=== PATIENT | male | born 1960 ===

== ENCOUNTER 2023-07-24 10:38 | Inpatient (IN) | payer MEDICARE ==
[~2023-07-24] VITALS: Ht 182.9 cm; Wt 95.7 kg
[~2023-07-24 10:38] MED LIST: ASPIRIN E.C. 8181 MG PO; ATARAX 25MG25 MG/TAB PO; FLEXERIL 1010 MG/TAB PO; GLUCOPHAGE XR500 M1 PO; GLUCOTROL XL10 MG PO; LIPITOR20 MG PO; LYRICA 75MG CAP75 MG PO; MOBIC 7.5MG7.5 MG PO; NEURONTIN300 MG/CAP PO; SINGULAIR 110 MG/TAB PO; ZESTORETIC 25 M1 TAB PO
[2023-08-13] VITALS (13 sets, daily range): BP systolic 123–160; BP diastolic 70–87; PULSE 71–98; TEMP 97.8–97.9
[2023-08-13 10:48] LABS: BASO % 0.5 % (0.0-2.0); EOS # 0.1 K/mm3 (0.0-0.7); EOS % 0.7 % (0.0-4.0); GRAN % 70.2 % (42.2-75.2); HEMATOCRIT 42.6 % (42.0-52.0); HEMOGLOBIN 14.2 g/dl (13.5-18.0); LYMPH # 1.5 K/mm3 (1.2-3.4); LYMPH % 17.6 % (20.0-51.0); MEAN CELL VOLUME 84 fl (80.0-100.0); MEAN CORPUSCULAR HEMOGLOBIN 28 pg (27-31); MEAN CORPUSCULAR HGB CONC 33 g/dl (33.0-37.0); MEAN PLATELET VOLUME 8.6 fl (7.4-10.4); MONO # 0.9 K/mm3 (0.1-0.6); MONO % 10.5 % (1.7-9.3); PLATELET COUNT 294 K/mm3 (130-400); REDCELL DISTRIBUTION WIDTH-CV 14.5 % (11.5-14.5)
[2023-08-13 11:07] LABS: ALBUMIN 3.7 gm/dL (3.4-4.8); BILIRUBIN,TOTAL 0.4 mg/dL (0.2-1.2); CALCIUM 9.6 mg/dL (8.4-10.2); CREATININE, serum 1.02 mg/dL (0.72-1.25); TOTAL PROTEIN 7.7 gm/dL (6.2-8.1)
--- NOTE | 2023-08-13 17:17 | NUR ---
Patient arrived to the unit at 1655, patient alert and oriented. Lungs CTA, Bowel sounds hypoactive, 5 lap sites with skin glued dry and intact, and 1 lap transvere intact, No drainage noted. SCDs in place. Pulses presents . Patient denies pain at this time. Patient oriented to room and the use of call shell. Patient reminded of ERAS protocol and verbalized understanding.
--- NOTE | 2023-08-13 22:54 | NUR ---
Patient assessed around 2029. Alert and oriented, and able to make needs known. Denies having pain and discomfort. Peripheral IV to right AC. Stopped IV fluids, as patient is tolerating PO fluids well. Sugical sites to abdomen are without any drainage. Indwelling mathis catheter with clear yellow urine. Voices no questions, needs, or concerns at this time. In bed with call light within reach. High fall risk precautions in place. Bed alarm on.
[2023-08-14] VITALS (9 sets, daily range): BP systolic 106–144; BP diastolic 58–82; PULSE 73–91; TEMP 97.3–98.5
[2023-08-14 05:54] LABS: CALCIUM 8.8 mg/dL (8.4-10.2); CREATININE, serum 1.05 mg/dL (0.72-1.25); MAGNESIUM 1.6 mg/dL (1.6-2.6); POTASSIUM 4.3 mmol/L (3.5-4.5)
[2023-08-14 05:55] LABS: HEMATOCRIT 37.4 % (42.0-52.0); HEMOGLOBIN 12.5 g/dl (13.5-18.0)
--- NOTE | 2023-08-14 06:01 | NUR ---
Patient given scheduled Acetaminophen with PRN Roxicodone as requested during the night. Tolerating PO fluids. Advanced diet to ADA. Voices no questions, needs, or concerns at this time. In bed with call light within reach.
--- NOTE | 2023-08-14 08:30 | NUR ---
PT RESTING IN BED WITH PAIN 05/12, PT EDUCATED THAT PAIN MEDICATION WILL BE AVAILABLE AT 1100. TAPIA REMOVED WITH NO ISSUES. ABDOMEN DISTENDED AND PT REPORTS NO PASSING GAS. PT WALKED HALLS STEADY GAIT WITH [employer] INST[employer]ER. WILL CONTINUE TO MONITOR.
--- NOTE | 2023-08-14 20:51 | NUR ---
PT A&O LAYING IN BED. VSS. SHIFT ASSESSMENT COMPLETE & HS MEDS GIVEN. C/O SOME ABD PAIN - STATES HE WANTS TO TAKE SCHEDULED TYLENOL & PRN OXY WHEN AVAILABLE. X5 LAP SITES & TRANSVERSE TO ABD W/ NO DRAINAGE PRESENT & OPEN TO AIR. INT TO RIGHT AC PATENT. CALL LIGHT IN REACH & DENYING FURTHER NEEDS.
[2023-08-15] VITALS (11 sets, daily range): BP systolic 114–135; BP diastolic 60–75; PULSE 66–84; TEMP 97.7–98.8
--- NOTE | 2023-08-15 07:40 | NUR ---
Shift assessment complete.VSS. Patient awake lying in bed upon arrival requesting to get up to the restroom. Patient was able to ambulate to BR with no assist needed. Patient has 5 abd lapsites CDI and a incision to the lower abd CDI. Patient complains of dull pain 7/10 to his abd. and requesting pain meds.Advised primary nurse. Bowel sounds hyperactive in all 4 quadrants. Patient is passing flatus but still has had no bowel movment. Patient states he is not hungry and wants to wait on breakfast.Patient has no other request at this time. Call light in reach.
--- NOTE | 2023-08-15 08:01 | NUR ---
Radiator Cleaner met with Patient at bedside to conduct Care Managment Assessment and discuss discharge planning. Patient lives alone in [place], [place] and is establiahed with pcp Ilia Mayfield. Patient is covered by [facility] and [facility] for insurance. Patient requests discharge medications be sent to [facility]. [facility] denies the use of DME and endorses independent ADL/IADLs prior to admission. Patient states that his DPOAHC is his friend Steve Zacarias. Patient intends to discharge home when medically ready. Discharge Plan: Home
--- NOTE | 2023-08-15 08:21 | NUR ---
PT LAYING IN BED, ALERT AND ORIENTEDX4. PT RATES PAIN 6/10 IN THE TRANSVERSE INSISIONAL SIGHT. LAP SIGHTS ARE CLEAN, DRY, INTACT. ASSESSED AND GAVE PAIN PILL. CALL LIGHT WITHIN REACH.
[2023-08-15] MEDS ORDERED: NORCO 325 MG-51 TAB PO (09:21)
--- NOTE | 2023-08-15 11:06 | NUR ---
Patient resting in bed. VSS. Patient states having pain in abd 5/10. pain meds given see EMAR. Patient has no request at this time. Call light in reach. Report given to primary nurse.
--- NOTE | 2023-08-15 19:31 | NUR ---
SHIFT ASSESSMENT COMPLETE. VSS. ABD LAPSITES X5 CDI. TRANSVERSE LOWER ABD INCISION CDI. PATIENT RATING PAIN 5/10 IN ABD. PAIN MEDS GIVEN PER ORDER SEE EMAR. PATIENT HAS NO COMPLAINTS OR REQUEST AT THIS TIME. CALL LIGHT IN REACH
[2023-08-16] VITALS (8 sets, daily range): BP systolic 106–148; BP diastolic 71–80; PULSE 74–83; TEMP 97.6–98.4
--- NOTE | 2023-08-16 07:16 | NUR ---
Shift report received from JUSTIN Foreman.
--- NOTE | 2023-08-16 07:58 | NUR ---
Patient awake in bed on his phone upon arrival.. Lungs CTA Bowel sounds active in all quadrants. 5 lap sites in the abdomen with skin glued dry and intact and 1 transvers incision well approximated , no drainage noted. Patient reports of tenderness at the incision area. Patient states he hasn't had bowel movement but positive flatus. Patient states he feels a little bit down going home due to living by himself other than that no other major concern. Call shell in reach.
--- NOTE | 2023-08-16 13:03 | NUR ---
SW met with patient prior to discharge to review and signed IM form. Patient did not have any questions and/or concerns at this time regarding dc. Patient is pending d/c back to his residence.
--- NOTE | 2023-08-16 14:54 | NUR ---
Discharge instruction given, patient verbalized understanding. INT discontinued, all belongings given to patient. Patient escorted to the ED entrance accompanied by family members.
== END 2023-08-16 14:15 | disposition home or self-care (01) | DRG 331 ==
LOC: INPTSU 08-13 09:41 → SURG 08-13 12:00
PROVIDERS: ADMIT Surgery
PROC: 0W9G4ZX Drainage of Peritoneal Cavity, Percutaneous Endoscopic Approach, Diagnostic (ICD-10-PCS; 2023-08-13)
PROC: 0DTN4ZZ Resection of Sigmoid Colon, Percutaneous Endoscopic Approach (ICD-10-PCS; principal; 2023-08-13 12:00)
DX: C18.7 Malignant neoplasm of sigmoid colon (principal); I10 Essential (primary) hypertension; E11.9 Type 2 diabetes mellitus without complications; Z79.84 Long term (current) use of oral hypoglycemic drugs
CPT/HCPCS: A4314; A9284; J0690; J1100; J1170; J1650; J1815; J1836; J1920; J2250; J2405; J2704; J2795; J3010; J7120

== ENCOUNTER → 2024-10-06 | Outpatient (CLI) | payer MEDICARE, MEDICAID ==
[~2024-10-06] VITALS: Ht 182.9 cm; Wt 94.0 kg
[2024-10-06] VITALS (14 sets, daily range): BP systolic 103–132; BP diastolic 70–88; PULSE 80–100; TEMP 98.7
[~2024-10-06] MED LIST changes: +ASPIRIN 81M81 MG/TA2 PO; +ATARAX50 MG PO; +CYMBALTA 30MG30 MG PO; +FLOMAX 0.40.4 MG/CAP PO; +GLUCOPHAGE500 MG/TAB PO; +GLUCOTROL10 MG PO; +Midazolam 2 MG/2 ML VIAL IV SCH; +NORCO 325 MG-51 TAB PO; +ZESTRIL2.5 MG PO; +fentaNYL 50 MCG/ML 2 ML VIAL IV SCH
--- NOTE | 2024-10-06 13:10 | NUR ---
pt to ct per wheelchair. Pt up and placed in supine position on CT table. Monitors applied and O2 on at 2l/nc. Dr Contreras in ct.
--- NOTE | 2024-10-06 13:50 | NUR ---
Specimen obtained and placed in formalin by Dr Contreras. Specimen labeled.
== END ==
LOC: COL.RAD 11:13
DX: M89.9 Disorder of bone, unspecified (principal); C18.7 Malignant neoplasm of sigmoid colon
CPT/HCPCS: C1830; J2250; J3010